=== PATIENT | female | born 1955 | race Caucasian/White ===

== ENCOUNTER → 2018-01-30 | Outpatient (CLI) | payer BC | LOC: COL.RAD 11:30 | DX: G93.89 Other specified disorders of brain (principal) ==

== ENCOUNTER → 2018-04-13 | Outpatient (CLI) | payer BC | LOC: COL.RAD 15:55 | DX: R22.42 Localized swelling, mass and lump, left lower limb (principal); Z85.118 Personal history of other malignant neoplasm of bronchus and lung ==